=== PATIENT | male | born 1985 | race Caucasian/White ===

== ENCOUNTER 2019-02-10 21:33 | Emergency (ER) | payer SELFPAY ==
[~2019-02-10] VITALS: Ht 172.7 cm; Wt 110.4 kg
[~2019-02-10 21:33] MED LIST: AMOX1TAB10 PO; HYDR-3980 PO; IBUP800T48 PO
[2019-02-10 21:41] VITALS: Ht 172.7 cm; Wt 110.4 kg
[2019-02-11] MEDS ORDERED: DIPHTH/TET/ACEL PERTUSS (ADULT) 0.5 ML VIAL IM* ONE
[2019-02-11] MEDS ORDERED: HYDROCODONE/APAP (10/325) TAB PO ONE (00:30)
[2019-02-11] MEDS ORDERED: morphine 4 MG/ML VIAL IV STA (02:30)
[2019-02-11] MEDS ORDERED: ONDANSETRON 4 MG INJ IV STA (02:30)
[2019-02-11] MEDS ORDERED: IBUPROFEN 800 MG TAB PO ONE (04:30)
[2019-02-11 04:39] VITALS: BP 121/77; PULSE 67; RESP 18
== END 2019-02-11 04:40 | disposition home or self-care (01) ==
LOC: FTE 21:33
DX: S02.2XXA Fracture of nasal bones, initial encounter for closed fracture (principal); S06.0X0A Concussion without loss of consciousness, initial encounter; M62.838 Other muscle spasm; S82.201A Unspecified fracture of shaft of right tibia, initial encounter for closed fracture; T14.8XXA Other injury of unspecified body region, initial encounter; R06.02 Shortness of breath; V23.4XXA Motorcycle driver injured in collision with car, pick-up truck or van in traffic accident, initial encounter; Z23 Encounter for immunization
CPT/HCPCS: 29505; 70450; 70486; 71046; 72125; 72128; 72131; 73590; 73610; 73630; 90471; 90715; 96374; 96375; 99285; J2270; J2405